=== PATIENT | female | born 2000 | race Caucasian/White ===

== ENCOUNTER 2025-01-20 15:01 | Outpatient (CLI) | payer OTHER, SELFPAY ==
--- NOTE | ~2025-01-20 | US_ITS ---
EXAMINATION: US transvaginal INDICATION: Evaluation of IUD. Comparison:No prior studies for comparison. TECHNIQUE: Multiple endovaginal sonographic images of the pelvis performed. FINDINGS: The uterus measures 6.8 x 3.5 x 4.2 cm. IUD located in the endometrium. The endometrial com plex measures 6 mm. The right ovary measures 3.8 x 2.3 x 3.6 cm and the left ovary measures 3 x 3 x 1.8 cm. There are sm all follicles in each ovary. Normal doppler signal in both ovaries. There is trace free fluid in the pelvis. There are no abnormal masses seen on either side. IMPRESSION: 1. IUD located in the endometrium. Reviewed, dictated and finalized at location A.
== END 2025-01-20 15:02 | disposition home or self-care (01) ==
LOC: MICIMG 15:02
PROVIDERS: PCP Advanced Practice Midwife; Visit Provider Advanced Practice Midwife
DX: Z30.431 Encounter for routine checking of intrauterine contraceptive device (principal)
CPT/HCPCS: 76830